=== PATIENT | male | born 1970 | race Caucasian/White ===

== ENCOUNTER 2022-09-08 01:29 | Day surgery (SDC) | payer OTHER, SELFPAY ==
[2022-08-28 14:12] VITALS: BMI 32.5
--- NOTE | 2022-09-05 20:50 | PM.HPGS ---
History of Present Illness History of Present Illness Consent: Risks, benefits, and alternatives have been discussed and questions answered. Patient agrees to proceed with procedure. Chief complaint: neoplasm screening Narrative: Edis Monet is a 52 year old male referred for colon cancer screening. This is his 1st colonoscopy. Review of Systems Review of Systems: All systems reviewed & are unremarkable except as noted in HPI and below PMFSH Past Medical History Medical History Diabetes mellitus type 2, controlled Dyslipidemia HTN (hypertension), benign Screening PSA (prostate specific antigen) Social History Social History Smoking status: Never smoker Alcohol intake: current Drinks per week: 14 Alcohol use details: beers Substance use: never Substance use type: does not use Living arrangements: with family Gender identity (if verbalized by the patient): Male Spiritual care concerns: No Meds Home Medications and Allergies Home Medications Medication Instructions Recorded Confirmed Type atorvastatin 20 mg tablet 20 mg PO QHS #90 tabs 06/19/22 09/08/22 Rx amlodipine 10 mg-benazepril 20 mg 1 cap PO DAILY #90 caps 06/20/22 09/08/22 Rx capsule (Lotrel) aspirin 81 mg tablet,delayed 81 mg PO DAILY 06/20/22 09/08/22 History release (Adult Low Dose Aspirin) chlorthalidone 25 mg tablet 25 mg PO DAILY #90 tabs 06/20/22 09/08/22 Rx multivitamin (Daily Multi-Vitamin 1 tablet PO DAILY 06/20/22 09/08/22 History tablet) cyanocobalamin (vitamin B-12) 2,000 mcg PO DAILY 06/25/22 09/08/22 History 1,000 mcg tablet (Vitamin B-12) metformin 500 mg tablet,extended 500 mg PO DAILY #90 tabs 06/26/22 09/08/22 Rx release 24 hr Allergies Allergy/AdvReac Type Severity Reaction Status Date / Time No Known Allergies Allergy Verified 09/08/22 06:49 Exam Const: General: alert Orientation/consciousness: patient oriented x3 Resp: Auscultation: clear to auscultation bilaterally Cardio: Rhythm: regular rhythm GI: GI Palp: Yes Soft to palpation and No Tenderness to palpation present (GI) Neuro: General: patient oriented x3 Assessment and Plan Assessment and plan (1) Colon cancer screening: Code(s): Z12.11 - Encounter for screening for malignant neoplasm of colon Status: Acute Assessment and Plan: Colonoscopy with possible biopsy or polypectomy or cautery or injection of substances.
--- NOTE | 2022-09-07 09:26 | WPDANESEPPF ---
Anes - Initial Pre Proc Eval Procedure: Operation Date: 09/08/22 08:00 Proposed Procedures p Screening Colonoscopy - Santino Burks MD Date/Time: 09/07/22 09:26 Surgeon: Santino Burks MD Pre Op Diagnosis: neoplasm screening Patient Data Age: 52 Gender: M Height: 1.83 m Weight: 109 kg Allergies Allergy/AdvReac Type Severity Reaction Status Date / Time No Known Allergies Allergy Verified 09/08/22 06:49 Home Medications Medication Instructions Recorded Confirmed Type atorvastatin 20 mg tablet 20 mg PO QHS #90 tabs 06/19/22 09/08/22 Rx amlodipine 10 mg-benazepril 20 mg 1 cap PO DAILY #90 caps 06/20/22 09/08/22 Rx capsule (Lotrel) aspirin 81 mg tablet,delayed 81 mg PO DAILY 06/20/22 09/08/22 History release (Adult Low Dose Aspirin) chlorthalidone 25 mg tablet 25 mg PO DAILY #90 tabs 06/20/22 09/08/22 Rx multivitamin (Daily Multi-Vitamin 1 tablet PO DAILY 06/20/22 09/08/22 History tablet) cyanocobalamin (vitamin B-12) 2,000 mcg PO DAILY 06/25/22 09/08/22 History 1,000 mcg tablet (Vitamin B-12) metformin 500 mg tablet,extended 500 mg PO DAILY #90 tabs 06/26/22 09/08/22 Rx release 24 hr Patient hx anesthesia problems: none Family hx anesthesia problems: none Results Review: All pre-operative results and documents have been reviewed as part of the pre-operative evaluation. [facility] Past Medical History Medical History Diabetes mellitus type 2, controlled Dyslipidemia HTN (hypertension), benign Screening PSA (prostate specific antigen) Social History Social History Smoking status: Never smoker Alcohol intake: current Drinks per week: 14 Alcohol use details: beers Substance use: never Substance use type: does not use Living arrangements: with family Gender identity (if verbalized by the patient): Male Spiritual care concerns: No Anes - Eval Final PreProcedure Day of Procedure 09/07/22 09:26 Patient weight: obese Heart: regular rate and rhythm Lungs: clear to auscultation and normal air movement Airway: Mallampati scale class II Neurological: alert and oriented Last oral intake: >/= 8 hours ASA classification: III Emergent: no Anesthetic plan: proceed Anesthesia type and monitoring: general GIVS Results Review: All pre-operative results and documents have been reviewed as part of the pre-operative evaluation. Informed Consent: The patient's anesthetic plan and its attendant risks and benefits were discussed with the patient/family/POA. Questions were solicited and answers provided to the satisfaction of the patient/family/POA.
[2022-09-08 06:53] VITALS: BP 159/87; PULSE 66; RESP 16; TEMP 36.4; O2SAT 99
[2022-09-08] MEDS: LACTATED RINGERS 1,000 ML 150 ML IV CONT (07:05)
[2022-09-08 07:07] LABS: Glucose Point of Care 153 mg/dl (65-105)
[2022-09-08 08:20] VITALS: BP 111/74; PULSE 64; RESP 16; O2SAT 96
[2022-09-08 08:30] VITALS: BP 127/80; PULSE 60; RESP 16; O2SAT 97
[2022-09-08 08:40] VITALS: BP 141/76; PULSE 60; RESP 16; O2SAT 97
== END 2022-09-08 08:51 | disposition home or self-care (01) ==
PROVIDERS: PCP Physician Assistant Medical; Visit Provider Internal Medicine Gastroenterology
PROC: 0DJD8ZZ Inspection of Lower Intestinal Tract, Via Natural or Artificial Opening Endoscopic (ICD-10-PCS; CPT 45378; principal; 2022-09-08 08:00)
DX: Z12.11 Encounter for screening for malignant neoplasm of colon (principal); K57.30 Diverticulosis of large intestine without perforation or abscess without bleeding; E11.9 Type 2 diabetes mellitus without complications; E78.5 Hyperlipidemia, unspecified; I10 Essential (primary) hypertension; E66.9 Obesity, unspecified; Z68.32 Body mass index [BMI] 32.0-32.9, adult; Z79.84 Long term (current) use of oral hypoglycemic drugs; Z79.82 Long term (current) use of aspirin
CPT/HCPCS: 45378; 82948; J2001; J2704; J7120